=== PATIENT | male | born 1965 | race African-American/Black ===

== ENCOUNTER 2019-07-21 16:42 | Emergency (ER) | payer MEDICAID ==
[~2019-07-21] VITALS: Ht 175.3 cm; Wt 73.0 kg
[~2019-07-21 16:42] MED LIST: METFORMIN
[2019-07-21 16:54] VITALS: BP 194/109
== END 2019-07-21 18:39 | disposition home or self-care (01) ==
LOC: ER 16:42
DX: S20.20XA Contusion of thorax, unspecified, initial encounter (principal); G89.29 Other chronic pain; M54.89 Other dorsalgia; M54.30 Sciatica, unspecified side; Z87.828 Personal history of other (healed) physical injury and trauma; X58.XXXA Exposure to other specified factors, initial encounter; Y93.89 Activity, other specified; Y92.89 Other specified places as the place of occurrence of the external cause
CPT/HCPCS: 99282

== ENCOUNTER 2022-06-26 11:24 | Emergency (ER) | payer MEDICAID ==
[~2022-06-26] VITALS: Ht 167.6 cm; Wt 81.0 kg
[2022-06-26 11:56] VITALS: BP 195/120
== END 2022-06-26 16:53 | disposition left against medical advice (07) ==
LOC: ER 12:14
DX: I10 Essential (primary) hypertension (principal); E11.9 Type 2 diabetes mellitus without complications; M54.30 Sciatica, unspecified side
CPT/HCPCS: 99281

== ENCOUNTER 2024-04-23 15:06 | Inpatient (IN) | payer MEDICAID, OTHER ==
[~2024-04-23] VITALS: Ht 175.3 cm; Wt 62.6 kg
[2024-04-23 15:38] LABS: HEMATOCRIT. 36.2 % (42.0-52.0); HEMOGLOBIN. 12.2 g/dL (14.0-18.0); MEAN CORPUSCULAR HEMOGLOBIN 28.3 pg (28.0-32.0); MEAN CORPUSCULAR HGB CONC 33.8 g/dL (31.0-37.0); MEAN CORPUSCULAR VOLUME 83.6 fL (80.0-94.0); MEAN PLATELET VOLUME 7.8 fl (7.4-10.4); PLATELET 298 x1000/uL (130-400); RED BLOOD CELL COUNT 4.33 mill/uL (4.7-6.1); RED CELL DISTRIBUTION WIDTH 14.2 % (11.6-14.6); WHITE BLOOD COUNT 14.8 x1000/uL (4.5-11.0)
[2024-04-23 15:41] LABS: CHLORIDE 99 mEq/L (98-107); SODIUM 133 mEq/L (136-145)
[2024-04-23 15:42] LABS: CARBON DIOXIDE 28 mEq/L (21-32); DIFFERENTIAL COMMENT 1
[2024-04-23 15:43] LABS: CALCIUM 9.7 mg/dL (8.7-10.4)
[2024-04-23] MEDS ORDERED: CLONIDINE 0.1MG TABLET PO ONE (15:45)
[2024-04-23 15:47] LABS: CREATININE 2.4 mg/dL (0.6-1.3); UREA NITROGEN BLOOD 37 mg/dL (9-23)
[2024-04-23 15:53] LABS: GLUCOSE 217 mg/dL (70-105)
[2024-04-23 16:04] LABS: PLATELET ESTIMATE NORMAL
[2024-04-23 16:13] LABS: TROPONIN I HIGH SENSITIVITY 155 ng/L (3.0-53)
[2024-04-23] MEDS: HYDRALAZINE 20MG/ML VIAL IV NR (16:30)
[2024-04-23] MEDS ORDERED: METOPROLOL TARTRATE 5MG/5ML VIAL IV ONE (19:00)
[2024-04-23] MEDS: CLONIDINE 0.1MG TABLET PO NR (19:04)
[2024-04-23] MEDS ORDERED: LEVOFLOXACIN 750MG PREMIX 150 ML IV NR (19:15)
[2024-04-23] MEDS: LABETALOL 5MG/ML 4ML INJ IV ONE (19:16)
[2024-04-23 19:23] LABS: TROPONIN I HIGH SENSITIVITY 189 ng/L (3.0-53)
[2024-04-23] MEDS: SODIUM CHLORIDE 0.9% 500 ML IV ONE ×2 (19:49→20:52)
[2024-04-23] MEDS: LEVOFLOXACIN 750MG PREMIX 150 ML IV NR (19:55)
[2024-04-23] MEDS: ASPIRIN 325MG EC TABLET PO NR (19:56)
[2024-04-23 21:17] LABS: CLARITY URINE CLOUDY (CLEAR); COLOR URINE YELLOW (YELLOW); GLUCOSE URINE NEGATIVE (NEGATIVE); KETONES URINE NEGATIVE (NEGATIVE); LEUKOCYTE ESTERASE URINE TRACE (NEGATIVE); NITRITE URINE NEGATIVE (NEGATIVE); OCCULT BLOOD URINE NEGATIVE (NEGATIVE); PH URINE 5.5 (4.5-8.0); PROTEIN URINE 3+ (NEGATIVE); SPECIFIC GRAVITY URINE 1.021 (1.005-1.030)
[2024-04-23 21:29] LABS: BACTERIA URINE TRACE; RBC URINE NONE SEEN /hpf (0-2); SQUAMOUS EPITHELIAL CELL URINE FEW /lpf (RARE/1+)
[2024-04-23 21:37] LABS: *AMPHETAMINES SCREEN URINE NEGATIVE (NEGATIVE); *BARBITURATES SCREEN URINE NEGATIVE (NEGATIVE); *BENZODIAZEPINES SCREEN URINE NEGATIVE (NEGATIVE); *COCAINE SCREEN URINE NEGATIVE (NEGATIVE); CANNABINOID URINE SCREEN PRESUMPTIVE POSITIVE (NEGATIVE); ECSTASY MDMA SCREEN URINE NEGATIVE (NEGATIVE); METHADONE URINE SCREEN NEGATIVE (NEGATIVE); OPIATES URINE SCREEN NEGATIVE (NEGATIVE); PHENCYCLIDINE URINE SCREEN NEGATIVE (NEGATIVE)
[2024-04-23] MEDS: ACETAMINOPHEN 325MG TABLET PO NR (21:56)
[2024-04-23] MEDS: ENOXAPARIN 60MG/0.6ML SYR SUBCUT ONE (21:58)
[2024-04-23 23:15] VITALS: BP 168/97; PULSE 109; RESP 18; TEMP 37.05852; TEMP 37.0852; O2SAT 98
[2024-04-23 23:52] LABS: TROPONIN I HIGH SENSITIVITY 223 ng/L (3.0-53)
[2024-04-24] VITALS (7 sets, daily range): BP systolic 113–155; BP diastolic 65–96; PULSE 93–110; RESP 18–20; TEMP 36.00288–37.16964; O2SAT 96–100
[2024-04-24] MEDS ORDERED: CLONIDINE 0.1MG TABLET PO PRN (00:30)
[2024-04-24] MEDS ORDERED: ACETAMINOPHEN 325MG TABLET PO PRN (00:30)
[2024-04-24] MEDS ORDERED: DEXTROSE 50% WATER 50ML SYRINGE IV PRN (00:30)
[2024-04-24] MEDS ORDERED: ONDANSETRON HCL 4MG/2ML INJ IV PRN (00:30)
[2024-04-24] MEDS ORDERED: METF-416 PO (01:06)
[2024-04-24] MEDS ORDERED: LOSA-413 PO (01:06)
[2024-04-24] MEDS ORDERED: DULO60CA45 PO (01:06)
[2024-04-24] MEDS ORDERED: ATOR10TA69 PO (01:06)
[2024-04-24] MEDS: HYDRALAZINE HCL 50MG TABLET PO SCH (06:10)
[2024-04-24 06:49] LABS: HEMATOCRIT. 30.5 % (42.0-52.0); HEMOGLOBIN. 10.3 g/dL (14.0-18.0); MEAN CORPUSCULAR HEMOGLOBIN 28.4 pg (28.0-32.0); MEAN CORPUSCULAR HGB CONC 33.8 g/dL (31.0-37.0); MEAN PLATELET VOLUME 8.1 fl (7.4-10.4); PLATELET 239 x1000/uL (130-400); RED BLOOD CELL COUNT 3.63 mill/uL (4.7-6.1); RED CELL DISTRIBUTION WIDTH 14.7 % (11.6-14.6); WHITE BLOOD COUNT 16.4 x1000/uL (4.5-11.0)
[2024-04-24 06:51] LABS: CARBON DIOXIDE 24 mEq/L (21-32); CHLORIDE 105 mEq/L (98-107); POTASSIUM 3.9 mEq/L (3.5-5.1); SODIUM 135 mEq/L (136-145)
[2024-04-24 06:52] LABS: CALCIUM 8.8 mg/dL (8.7-10.4)
[2024-04-24 06:57] LABS: GLUCOSE 133 mg/dL (70-105); TRIGLYCERIDE 133 mg/dL (0-150); UREA NITROGEN BLOOD 37 mg/dL (9-23)
[2024-04-24 06:58] LABS: LDL CHOLESTEROL 43 mg/dL (5-100)
[2024-04-24 06:59] LABS: CHOLESTEROL 80 mg/dL (<200); HDL CHOLESTEROL < 20 mg/dL (>55)
[2024-04-24 07:07] LABS: TROPONIN I HIGH SENSITIVITY 189 ng/L (3.0-53)
[2024-04-24 07:10] LABS: DIFFERENTIAL COMMENT 1
[2024-04-24] MEDS: BLOOD SUGAR DIAGNOSTIC STRIP TEST SCH (07:40)
[2024-04-24] MEDS: INSULIN LISPRO 100 UNITS/ML SUBCUT SCH (08:10)
[2024-04-24] MEDS: DULOXETINE HCL 60MG DR CAPSULE PO SCH (08:17)
[2024-04-24] MEDS: METOPROLOL TARTRATE 50MG TABLET PO SCH (08:17)
[2024-04-24] MEDS: GUAIFENESIN-DM 200MG-20MG/10ML UDC PO PRN (08:17)
[2024-04-24] MEDS: ASPIRIN 81MG TABLET PO SCH (08:17)
[2024-04-24] MEDS: AMLODIPINE 10MG TABLET PO SCH (08:17)
[2024-04-24] MEDS: INSULIN GLARGINE 100 UNITS/ML SUBCUT SCH (10:34)
[2024-04-24] MEDS: CEFTRIAXONE 1GM/50ML 50 ML IV SCH (11:25)
[2024-04-24] MEDS: AZITHROMYCIN 500 MG TABLET PO NR (11:32)
[2024-04-24] MEDS ORDERED: IPRATROPIUM BROMIDE (0.02%) 0.5MG/2.5ML NEB HHN PRN (14:45)
[2024-04-24 16:27] LABS: PLATELET ESTIMATE NORMAL
[2024-04-24] MEDS: ATORVASTATIN CALCIUM 40MG TABLET PO SCH (20:45)
[2024-04-25] VITALS: BP 106/70; PULSE 95; RESP 18; TEMP 36.22512; O2SAT 97
[2024-04-25 04:00] VITALS: BP 140/79; PULSE 96; RESP 20; TEMP 36.6696; O2SAT 97
[2024-04-25 06:27] LABS: INR 1.1; PROTHROMBIN TIME 11.7 sec (9.6-11.0)
[2024-04-25 06:28] LABS: CHLORIDE 106 mEq/L (98-107); POTASSIUM 3.8 mEq/L (3.5-5.1); SODIUM 135 mEq/L (136-145)
[2024-04-25 06:29] LABS: CARBON DIOXIDE 23 mEq/L (21-32)
[2024-04-25 06:30] LABS: CALCIUM 8.9 mg/dL (8.7-10.4)
[2024-04-25 06:34] LABS: CREATININE 1.8 mg/dL (0.6-1.3); GLUCOSE 113 mg/dL (70-105)
[2024-04-25 06:35] LABS: UREA NITROGEN BLOOD 34 mg/dL (9-23)
[2024-04-25 06:37] LABS: PHOSPHORUS 2.7 mg/dL (2.5-4.9)
[2024-04-25 06:45] LABS: HEMATOCRIT. 30.6 % (42.0-52.0); HEMOGLOBIN. 10.4 g/dL (14.0-18.0); MEAN CORPUSCULAR HEMOGLOBIN 28.6 pg (28.0-32.0); MEAN CORPUSCULAR VOLUME 84.1 fL (80.0-94.0); MEAN PLATELET VOLUME 7.9 fl (7.4-10.4); PLATELET 273 x1000/uL (130-400); RED BLOOD CELL COUNT 3.64 mill/uL (4.7-6.1); RED CELL DISTRIBUTION WIDTH 14.6 % (11.6-14.6); WHITE BLOOD COUNT 13.1 x1000/uL (4.5-11.0)
[2024-04-25 07:23] LABS: DIFFERENTIAL COMMENT 1
[2024-04-25 08:27] VITALS: BP 138/80; PULSE 102; RESP 20; TEMP 35.94732; O2SAT 96
[2024-04-25] MEDS: AZITHROMYCIN 250 MG TABLET PO SCH (10:17)
[2024-04-25 12:26] VITALS: BP 116/77; PULSE 98; RESP 20; TEMP 36.55848; O2SAT 95
[2024-04-25 13:55] LABS: CREATINE KINASE 28 IU/L (46-171)
[2024-04-25 15:57] VITALS: BP 133/80; PULSE 97; RESP 20; TEMP 37.00296; O2SAT 97
[2024-04-25 20:00] VITALS: BP 134/76; PULSE 103; RESP 20; TEMP 36.22512; O2SAT 96
[2024-04-25] MEDS: ZOLPIDEM TARTRATE 5MG TABLET PO PRN (21:38)
[2024-04-25 22:20] LABS: PLATELET ESTIMATE NORMAL
[2024-04-26] VITALS: BP 142/79; PULSE 100; RESP 20; TEMP 36.44736; O2SAT 95
[2024-04-26 04:00] VITALS: BP 123/66; PULSE 88; RESP 18; TEMP 36.114; O2SAT 96
[2024-04-26 08:00] VITALS: BP 148/87; PULSE 94; RESP 20; TEMP 36.55848; O2SAT 99
[2024-04-26] MEDS ORDERED: LEVO-65 MT (08:21)
[2024-04-26 09:07] VITALS: BP 148/87; PULSE 94; TEMP 97.9; O2SAT 99
[2024-04-26 09:38] VITALS: PULSE 94
== END 2024-04-26 10:15 | disposition home or self-care (01) | DRG 720 ==
LOC: ER 15:06 → 7WST 20:34 → ER 22:50
PROVIDERS: ADMIT Internal Medicine; ATTEND Internal Medicine
DX: A41.9 Sepsis, unspecified organism (principal); I21.A1 Myocardial infarction type 2; E87.20 Acidosis, unspecified; N17.9 Acute kidney failure, unspecified; G90.89 Other disorders of autonomic nervous system; J18.9 Pneumonia, unspecified organism; Z20.822 Contact with and (suspected) exposure to COVID-19; F17.210 Nicotine dependence, cigarettes, uncomplicated; I12.9 Hypertensive chronic kidney disease with stage 1 through stage 4 chronic kidney disease, or unspecified chronic kidney disease; E11.22 Type 2 diabetes mellitus with diabetic chronic kidney disease; N18.30 Chronic kidney disease, stage 3 unspecified; F12.10 Cannabis abuse, uncomplicated; T46.5X6A Underdosing of other antihypertensive drugs, initial encounter; Z79.82 Long term (current) use of aspirin; Z79.899 Other long term (current) drug therapy; Z91.148 Patient's other noncompliance with medication regimen for other reason; Y92.89 Other specified places as the place of occurrence of the external cause
CPT/HCPCS: 36415; 71045; 71250; 76770; 80048; 80061; 80305; 80320; 81003; 82550; 82962; 83036; 83605; 83735; 83880; 84100; 84145; 84484; 85025; 85379; 87420; 87426; 87804; 93005; 93306; 93970; 99291; J0360; J0696; J1650; J1815; J1956; J3490; J7040; G0480

== ENCOUNTER 2024-10-26 15:30 | Inpatient (IN) | payer OTHER ==
[~2024-10-26] VITALS: Ht 170.2 cm; Wt 73.5 kg
[2024-10-26] VITALS (8 sets, daily range): BP systolic 123–158; BP diastolic 65–93; PULSE 88–100; RESP 25–32; TEMP 36.7; O2SAT 88–97
[~2024-10-26 15:30] MED LIST changes: +ATOR10TA69 PO; +DULO60CA45 PO; +FURO-151 MT; +LOSA-413 PO; +METF-416 PO; -METFORMIN; +METO-539 MT; +POTA-205 MT
[2024-10-26 15:59] LABS: EOSINOPHILS % 0.7 % (0.0-5.0); HEMATOCRIT. 39.6 % (42.0-52.0); HEMOGLOBIN. 12.8 g/dL (14.0-18.0); MEAN CORPUSCULAR HEMOGLOBIN 25.9 pg (28.0-32.0); MEAN CORPUSCULAR HGB CONC 32.3 g/dL (31.0-37.0); MEAN CORPUSCULAR VOLUME 80.3 fL (80.0-94.0); MEAN PLATELET VOLUME 8.1 fl (7.4-10.4); MONOCYTES % 7.2 % (2.0-8.0); NEUTROPHILS % 70.1 % (40.0-76.0); PLATELET 215 x1000/uL (130-400); RED BLOOD CELL COUNT 4.93 mill/uL (4.7-6.1); RED CELL DISTRIBUTION WIDTH 18.6 % (11.6-14.6); WHITE BLOOD COUNT 4.9 x1000/uL (4.5-11.0)
[2024-10-26] MEDS: FUROSEMIDE 40MG/4ML VIAL IVP ONE ×2 (16:06→16:35)
[2024-10-26 16:12] LABS: CHLORIDE 104 mEq/L (98-107); POTASSIUM 3.7 mEq/L (3.5-5.1); SODIUM 141 mEq/L (136-145)
[2024-10-26 16:13] LABS: CALCIUM 9.1 mg/dL (8.7-10.4); CARBON DIOXIDE 25 mEq/L (21-32)
[2024-10-26 16:18] LABS: CREATININE 1.9 mg/dL (0.6-1.3); GLUCOSE 132 mg/dL (70-105); INR 1.1; PROTHROMBIN TIME 11.7 sec (9.6-11.0); UREA NITROGEN BLOOD 32 mg/dL (9-23)
[2024-10-26 16:20] LABS: ALANINE AMINOTRANSFERASE 31 IU/L (10-49); ASPARTATE AMINOTRANSFERASE 35 IU/L (<34); BILIRUBIN DIRECT 0.4 mg/dL (<=3.0)
[2024-10-26 16:21] LABS: BILIRUBIN TOTAL 1.2 mg/dL (0.1-1.0); PROTEIN TOTAL 7.9 g/dL (6.0-8.3)
[2024-10-26] MEDS: HYDRALAZINE 20MG/ML VIAL IV ONE (16:23)
[2024-10-26 16:40] LABS: TROPONIN I HIGH SENSITIVITY 151 ng/L (3.0-53)
[2024-10-26 18:01] LABS: CLARITY URINE CLEAR (CLEAR); COLOR URINE YELLOW (YELLOW); GLUCOSE URINE NEGATIVE (NEGATIVE); KETONES URINE NEGATIVE (NEGATIVE); LEUKOCYTE ESTERASE URINE NEGATIVE (NEGATIVE); NITRITE URINE NEGATIVE (NEGATIVE); OCCULT BLOOD URINE NEGATIVE (NEGATIVE); PROTEIN URINE 2+ (NEGATIVE); SPECIFIC GRAVITY URINE 1.007 (1.005-1.030); UROBILINOGEN URINE 0.2 E.U./dL (0.2-1.0)
[2024-10-26] MEDS: LABETALOL 5MG/ML 4ML INJ IV ONE (18:10)
[2024-10-26 18:21] LABS: BACTERIA URINE TRACE; RBC URINE NONE SEEN /hpf (0-2); SQUAMOUS EPITHELIAL CELL URINE RARE /lpf (RARE/1+); WBC URINE 0-2 /hpf (0-2)
[2024-10-26] MEDS ORDERED: NICARDIPINE 50 MG in SODIUM CHLORIDE 0.9% 230 ML IV PRN (19:15)
[2024-10-26] MEDS: NICARDIPINE 40MG/200ML PREMIX 200 ML IV PRN (19:46)
[2024-10-26] MEDS ORDERED: CLONIDINE 0.1MG TABLET PO PRN (22:00)
[2024-10-26] MEDS ORDERED: DEXTROSE 50% WATER 50ML SYRINGE IV PRN (22:30)
[2024-10-27] VITALS (47 sets, daily range): BP systolic 117–152; BP diastolic 58–100; PULSE 82–110; RESP 16–41; TEMP 36.5–36.7; O2SAT 87–99
[2024-10-27 05:26] LABS: BASOPHILS % 0.6 % (0.0-2.0); DIFFERENTIAL COMMENT 0; EOSINOPHILS % 1.6 % (0.0-5.0); HEMATOCRIT. 33.8 % (42.0-52.0); LYMPHOCYTES % 24.9 % (20.0-50.0); MEAN CORPUSCULAR HEMOGLOBIN 25.8 pg (28.0-32.0); MEAN CORPUSCULAR HGB CONC 32.7 g/dL (31.0-37.0); MEAN PLATELET VOLUME 8.2 fl (7.4-10.4); MONOCYTES % 8.6 % (2.0-8.0); NEUTROPHILS % 64.3 % (40.0-76.0); PLATELET 193 x1000/uL (130-400); RED BLOOD CELL COUNT 4.27 mill/uL (4.7-6.1); RED CELL DISTRIBUTION WIDTH 18.1 % (11.6-14.6); WHITE BLOOD COUNT 4.8 x1000/uL (4.5-11.0)
[2024-10-27] MEDS: INSULIN LISPRO 100 UNITS/ML SUBCUT SCH (05:30)
[2024-10-27] MEDS: BLOOD SUGAR DIAGNOSTIC STRIP TEST SCH (05:30)
[2024-10-27] MEDS: HYDRALAZINE HCL 100MG TABLET PO SCH (05:31)
[2024-10-27] MEDS: NICARDIPINE 40MG/200ML PREMIX 200 ML IV PRN (05:44)
[2024-10-27 05:54] LABS: POTASSIUM 3.3 mEq/L (3.5-5.1)
[2024-10-27 05:55] LABS: CALCIUM 8.3 mg/dL (8.7-10.4)
[2024-10-27 05:59] LABS: CREATININE 1.9 mg/dL (0.6-1.3)
[2024-10-27] MEDS: FUROSEMIDE 40MG TABLET PO SCH (06:46)
[2024-10-27] MEDS: AMLODIPINE 10MG TABLET PO SCH (09:04)
[2024-10-27] MEDS: METOPROLOL TARTRATE 50MG TABLET PO SCH (09:04)
[2024-10-27] MEDS: ASPIRIN 81MG TABLET PO SCH (09:04)
[2024-10-27] MEDS: DULOXETINE HCL 60MG DR CAPSULE PO SCH (09:04)
[2024-10-27] MEDS: POTASSIUM CHLORIDE 20MEQ/PACKET PO NR (12:01)
[2024-10-27] MEDS: ENOXAPARIN 40MG/0.4ML SYR SUBCUT SCH (12:01)
[2024-10-27 12:48] LABS: TROPONIN I HIGH SENSITIVITY 156 ng/L (3.0-53)
[2024-10-28] VITALS: BP 141/89; PULSE 84; RESP 18; TEMP 36.6; O2SAT 95
[2024-10-28 04:00] VITALS: BP 134/88; PULSE 82; RESP 16; TEMP 36.5; O2SAT 95
[2024-10-28 08:00] VITALS: BP 128/81; PULSE 87; RESP 20; TEMP 36.9; O2SAT 97
[2024-10-28] MEDS ORDERED: POTA-205 MT (10:38)
[2024-10-28] MEDS ORDERED: LOSA-413 PO (10:38)
[2024-10-28] MEDS ORDERED: METO-539 MT (10:38)
[2024-10-28] MEDS ORDERED: HYDR100T11 MT (10:38)
[2024-10-28 11:11] VITALS: BP 133/88; PULSE 80; TEMP 98; O2SAT 98
== END 2024-10-28 14:20 | disposition home or self-care (01) | DRG 190 ==
LOC: ER 15:30 → EDBEDREQ 19:04 → EDBEDREQTM 19:04 → EDBEDREQSVC 19:37 → ENRESERV 20:44 → MICUSO 21:30 → 6WST 10-27 14:34
PROVIDERS: ADMIT Internal Medicine; ATTEND Internal Medicine
DX: I21.4 Non-ST elevation (NSTEMI) myocardial infarction (principal); I50.33 Acute on chronic diastolic (congestive) heart failure; N17.9 Acute kidney failure, unspecified; I27.20 Pulmonary hypertension, unspecified; I16.1 Hypertensive emergency; I13.0 Hypertensive heart and chronic kidney disease with heart failure and stage 1 through stage 4 chronic kidney disease, or unspecified chronic kidney disease; N18.9 Chronic kidney disease, unspecified; E11.22 Type 2 diabetes mellitus with diabetic chronic kidney disease; E78.5 Hyperlipidemia, unspecified; F17.200 Nicotine dependence, unspecified, uncomplicated; Z79.84 Long term (current) use of oral hypoglycemic drugs; Z79.899 Other long term (current) drug therapy
CPT/HCPCS: 36415; 71045; 80048; 80076; 81003; 82962; 83036; 83880; 84484; 85025; 93005; 93970; 96365; 96366; 96372; 96375; 99291; A4606; J0360; J1650; J1815; J1940; J3490

== ENCOUNTER 2025-01-07 19:35 | Emergency (ER) | payer OTHER ==
[~2025-01-07] VITALS: Ht 175.3 cm; Wt 64.0 kg
[~2025-01-07 19:35] MED LIST changes: +HYDR100T11 MT
[2025-01-07 19:38] VITALS: O2SAT 97
[2025-01-07 21:03] LABS: BASOPHILS % 0.6 % (0.0-2.0); EOSINOPHILS % 1.4 % (0.0-5.0); HEMATOCRIT. 36.2 % (42.0-52.0); HEMOGLOBIN. 11.4 g/dL (14.0-18.0); LYMPHOCYTES % 13.0 % (20.0-50.0); MEAN PLATELET VOLUME 7.9 fl (7.4-10.4); MONOCYTES % 8.9 % (2.0-8.0); NEUTROPHILS % 76.1 % (40.0-76.0); PLATELET 209 x1000/uL (130-400); RED BLOOD CELL COUNT 4.52 mill/uL (4.7-6.1); RED CELL DISTRIBUTION WIDTH 19.2 % (11.6-14.6)
[2025-01-07 21:11] LABS: INR 1.2
[2025-01-07 21:27] LABS: CREATININE 2.4 mg/dL (0.6-1.3)
[2025-01-07 21:28] LABS: UREA NITROGEN BLOOD 47 mg/dL (9-23)
[2025-01-07 21:34] LABS: TROPONIN I HIGH SENSITIVITY 145 ng/L (3.0-53)
[2025-01-07] MEDS: ASPIRIN 325MG EC TABLET PO ONE (22:34)
[2025-01-07] MEDS: HYDRALAZINE 20MG/ML VIAL IV ONE (22:36)
[2025-01-07] MEDS: ENOXAPARIN 30MG/0.3ML SYR SUBCUT ONE (22:37)
[2025-01-07] MEDS: FUROSEMIDE 40MG/4ML VIAL IVP ONE (22:37)
[2025-01-07 22:57] LABS: CLARITY URINE CLEAR (CLEAR); COLOR URINE YELLOW (YELLOW); GLUCOSE URINE NEGATIVE (NEGATIVE); KETONES URINE NEGATIVE (NEGATIVE); LEUKOCYTE ESTERASE URINE NEGATIVE (NEGATIVE); NITRITE URINE NEGATIVE (NEGATIVE); OCCULT BLOOD URINE NEGATIVE (NEGATIVE); PH URINE 5.0 (4.5-8.0); PROTEIN URINE 3+ (NEGATIVE); SPECIFIC GRAVITY URINE 1.016 (1.005-1.030); UROBILINOGEN URINE 0.2 E.U./dL (0.2-1.0)
[2025-01-07 23:05] LABS: RBC URINE NONE SEEN /hpf (0-2); SQUAMOUS EPITHELIAL CELL URINE RARE /lpf (RARE/1+); WBC URINE 0-2 /hpf (0-2)
[2025-01-07 23:06] LABS: BACTERIA URINE RARE
[2025-01-07 23:08] LABS: TROPONIN I HIGH SENSITIVITY 143 ng/L (3.0-53)
[2025-01-08] MEDS: METOPROLOL TARTRATE 50MG TABLET PO ONE (01:26)
[2025-01-08] MEDS: LOSARTAN 50 MG TABLET PO ONE (01:26)
[2025-01-08 01:56] VITALS: BP 176/114; PULSE 113; RESP 26; TEMP 37.1; O2SAT 97
== END 2025-01-08 02:14 | disposition short-term general hospital (02) ==
LOC: ER 19:35 → EDBEDREQTM 21:50 → EDBEDREQ 21:50 → ER 01-08 02:14
DX: I13.0 Hypertensive heart and chronic kidney disease with heart failure and stage 1 through stage 4 chronic kidney disease, or unspecified chronic kidney disease (principal); I50.9 Heart failure, unspecified; N50.89 Other specified disorders of the male genital organs; N17.9 Acute kidney failure, unspecified; F12.90 Cannabis use, unspecified, uncomplicated; E11.22 Type 2 diabetes mellitus with diabetic chronic kidney disease; N18.9 Chronic kidney disease, unspecified; Z79.899 Other long term (current) drug therapy; Z79.84 Long term (current) use of oral hypoglycemic drugs
CPT/HCPCS: 99291; 96374; 93976; 71045; 96375; 80048; 81003; 83880; 83735; 85025; 85610; 84484; 36415; 76870; 93005; 96372; J1650; J1938; J0360